=== PATIENT | female | born 1980 | race Asian ===

== ENCOUNTER → 2020-11-14 10:15 | Outpatient (CLI) | payer OTHER, SELFPAY ==
[2020-11-14 11:15] LABS: Specimen Label NATERAKIT
[2020-11-14 14:20] LABS: Urine N gonorrhoeae NOT DETECTED
[2020-11-14 14:44] LABS: Urine Chlamydia NOT DETECTED
== END ==
PROVIDERS: Referring Provider Obstetrics & Gynecology; Visit Provider Obstetrics & Gynecology
DX: Z34.02 Encounter for supervision of normal first pregnancy, second trimester (principal); Z36.0 Encounter for antenatal screening for chromosomal anomalies; Z11.3 Encounter for screening for infections with a predominantly sexual mode of transmission; Z3A.14 14 weeks gestation of pregnancy
CPT/HCPCS: 36415; 87491; 87591

== ENCOUNTER → 2021-02-04 11:47 | Outpatient (CLI) | payer OTHER, SELFPAY ==
[2021-02-04 13:18] LABS: Hematocrit 32.3 % (36-46); Hemoglobin 11.3 g/dL (12.0-16.0)
[2021-02-04 13:32] LABS: GTT (PREG) 1 Hour PP 50gm Dose 127 mg/dL (76-139)
== END ==
PROVIDERS: Referring Provider Obstetrics & Gynecology; Visit Provider Obstetrics & Gynecology
DX: Z34.02 Encounter for supervision of normal first pregnancy, second trimester (principal); Z3A.25 25 weeks gestation of pregnancy
CPT/HCPCS: 36415; 82950; 85014; 85018

== ENCOUNTER → 2021-04-20 14:56 | Outpatient (CLI) | payer OTHER, SELFPAY ==
[2021-04-21 13:34] LABS: Strep Grp B PCR NEG for Grp B Strep
== END ==
PROVIDERS: Visit Provider Obstetrics & Gynecology
DX: Z34.03 Encounter for supervision of normal first pregnancy, third trimester (principal); Z3A.36 36 weeks gestation of pregnancy
CPT/HCPCS: 87653

== ENCOUNTER → 2021-04-27 11:51 | Outpatient (CLI) | payer OTHER, SELFPAY | PROVIDERS: Visit Provider Obstetrics & Gynecology | DX: R31.9 Hematuria, unspecified (principal) | CPT/HCPCS: 87086 ==

== ENCOUNTER → 2021-05-04 09:07 | Outpatient (CLI) | payer OTHER, SELFPAY ==
[2021-05-04 10:04] LABS: COVID19 -Nasal RAPID Negative (Negative)
== END ==
PROVIDERS: Visit Provider Obstetrics & Gynecology
DX: Z34.03 Encounter for supervision of normal first pregnancy, third trimester (principal); Z3A.38 38 weeks gestation of pregnancy
CPT/HCPCS: 87635

== ENCOUNTER 2021-05-07 05:35 | Inpatient (IN) | payer OTHER, SELFPAY ==
[2021-05-07] MEDS: LACTATED RINGERS 1,000 ML 100 ML IV ×5 (06:00→12:26)
[2021-05-07 06:29] LABS: Add Manual Diff / Slide Review NO; Basophils Absolute Auto 100 /uL (0-100); Basophils Percent Auto 0.7 % (0-2); Eosinophils Absolute Auto 200 /uL (0-450); Eosinophils Percent Auto 2.1 % (2-4); Hematocrit 36.3 % (36-46); Hemoglobin 12.6 g/dL (12.0-16.0); Lymphocytes Absolute Auto 1700 /uL (1100-4500); Lymphocytes Percent Auto 22.5 % (25-40); Mean Corpuscular HGB Conc 34.8 % (30-36); Mean Corpuscular Hemoglobin 32.8 PG (26-34); Mean Corpuscular Volume 94.4 fL (80-100); Monocytes Absolute Auto 800 /uL (0-900); Monocytes Percent Auto 9.9 % (3-14); Neutrophils Absolute Auto 5100 /uL (1500-7000); Neutrophils Percent Auto 64.8 % (50-75); Platelet Count 192 X10^3/uL (150-400); Red Blood Cell Count 3.84 X10^6/uL (4.0-5.2); Red Cell Distribution Width 13.8 % (11.6-14.8); White Blood Cell Count 7.8 X10^3/uL (4.5-11.0)
--- NOTE | 2021-05-07 07:25 | SUR.OPER ---
Supine on Padded OR bed, head on pillow, safety belt at thigh, arms secured on padded arm boards at <90 degrees abduction. Bump under right buttock. Legs uncrossed with pillow under knees, gel pad to heels, tape over blanket to lower legs.
[2021-05-07] MEDS: CITRIC ACID/SODIUM CITRATE 15 ML SOLUTION 30 ML PO (07:37)
--- NOTE | 2021-05-07 07:46 | P.HPOB_ITS ---
OB HPI Date/Time Date of admission: 05/07/21 Date Patient Seen: 05/07/21 Time Patient Seen: 07:46 History of Present Condition Chief complaint: INPT COY Calculator Estimated Delivery Date Method Current WG Current Estimate 05/15/21 LMP (Certain) 38w 6d Other Estimates 05/20/21 Ultrasound #1 38w 1d Estimated Gestational Age (weeks): 39 : 1 Para: 0 care: good care, initiated at week # (8), number of visits (11) and pounds weight gain (37) Dating criteria OB: LMP confirmed by 1st trimester US Ultrasounds: normal 1st trimester US and normal mid trimester US Obstetrical complications: none Medical complications OB: none Indications Operative indications ( section): cephalopelvic disproportion (short stature/contracted pelvis) Preadmission Labs Last OB Lab Results: Blood Type AB Positive 05/07/21 06:15 05/07/21 Antibody Screen Negative 05/07/21 06:15 05/07/21 Hematocrit 36.3 % (36-46) 05/07/21 06:15 05/07/21 Hemoglobin 12.6 g/dL (12.0-16.0) 05/07/21 06:15 05/07/21 Glucose 1 Hour 127 mg/dL (76-139) 02/04/21 13:02 02/04/21 Group B Streptococcus (PCR) Neg for grp b strep 04/20/21 14:56 04/20/21 -: Chlamydia screen: negative, Gonorrhea screen: negative and Urine: negative -: PAP smear: Normal Genetic Screens: Cell-free DNA: Normal and Alpha-fetoprotein: Normal External Labs Blood type OB HPI: AB (+) positive -: Antibody screen: negative, HBsAG: negative, HIV: negative, RPR/VDLR: negative, Chlamydia screen: negative, Gonorrhea screen: negative and Urine: negative -: Rubella: immune and Varicella: immune HCAB: negative PAP: Normal Evaluation Evaluation Baseline heart rate: 135 Variability: Moderate (11-25) monitor accelerations: Present Monitor Decelerations: Absent Status: Category l [facility] Medical History (Updated 03/18/21 @ 10:30 by Juany De Jesus MD) Abnormal Pap smear of cervix (~2005) Surgical History (Updated 11/12/20 @ 12:43 by Laina Caputo RN) [place] teeth extracted Family History (Updated 11/12/20 @ 12:50 by Laina Caputo RN) Mother Hypertension Diabetes mellitus Stented coronary artery Hyperlipidemia Father Pancreatic cancer Stroke Hypertension History of open heart surgery Grandmother Alzheimer disease Diabetes mellitus Grandfather Unknown family medical history Grandmother Cancer Hyperlipidemia Grandfather Cancer Social History marital status: number of children: 0 household members: spouse lives independently: Yes caregiver/support person: No housing: house pets and animals: Yes (2 dogs: ) education level: master's degree (Licensed Acupuncturist, 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 ), swimming (1 hour twice a week.) and running frequency: 3-4 times per week duration: 30-45 minutes/day Meds Home Medications and Allergies Home Medications Medication Instructions Recorded Confirmed Type prenat.vits,jocelyne,eus-bzvq-ehkib 1 tab PO DAILY 11/12/20 05/04/21 History pantoprazole 40 mg tablet,delayed 40 mg PO DAILY #30 tab 02/04/21 05/04/21 Rx release (Protonix) meclizine 25 mg tablet 25 mg PO Q6H PRN #20 tab 02/24/21 05/04/21 Rx Allergies Allergy/AdvReac Type Severity Reaction Status Date / Time No Known Drug Allergies Allergy Verified 05/04/21 08:46 OB Exam Narrative Exam Narrative: HEENT: No thyromegaly, no anterior cervical or supraclavicular lymphadenopathy. Lungs:Clear to auscultation bilaterally, no wheezes. Cardiovascular: Regular rate and rhythm, no murmurs, rubs, or gallops. Abdomen: No scars. No hepatosplenomegaly. No masses palpable. Fundal height: 39 cm Estimated weight: 7 lb External genitalia: Normal Vagina: Normal Cervix: Normal Extremities: Tr edema Objective Labs Result Diagrams: 05/07/21 06:15 Labs: Laboratory Results - last 24 hr 05/07/21 05/07/21 06:15 06:15 WBC 7.8 RBC 3.84 L Hgb 12.6 Hct 36.3 MCV 94.4 MCH 32.8 MCHC 34.8 RDW 13.8 Plt Count 192 Neut % (Auto) 64.8 Lymph % (Auto) 22.5 L [place] % (Auto) 9.9 Eos % (Auto) 2.1 Baso % (Auto) 0.7 Neut # (Auto) 5100 Lymph # (Auto) 1700 [place] # (Auto) 800 Eos # (Auto) 200 Baso # (Auto) 100 Blood Type AB Positive Antibody Screen Negative Assessment and Plan Assessment and Plan Assessment and Plan narrative: Assessment: 40-year-old 1 para 0 at an estimated gestational age of 39 weeks Short stature/contracted pelvis Desires primary section Plan: Primary low-transverse section The risks, benefits, and alternatives to the procedure were explained to the patient. The risks including bleeding, infection, injury to the bowel, bladder, or ureters. She understands these risks and agrees to proceed. A full par Q was held and consent form was signed. Time Spent with Patient Total time spent with greater than 50% in coordination of care (as documented) at patient's floor/unit and/or counseling patient:: 15-24 minutes
--- NOTE | 2021-05-07 07:56 | PM.PREOP ---
Pre-operative Note COVID-19 COVID-19 status: Negative Result date/Date tested (Pos, Neg/Pending): 05/04/21 Criteria for continued procedure: Non-surgical alternatives not available or appropriate per current SOC Interval Note History & Physical reviewed/Exam performed by Physician: Yes Changes to H&P: No H&P completed within 30 days and has changed as indicated here:: 05/07/21
[2021-05-07] MEDS: CEFAZOLIN 2 GM/20 ML SYRINGE IV (08:01)
--- NOTE | 2021-05-07 08:32 | SUR.OPER ---
FHT's before prep 145. TOB 0820 live female. Cord blood x 2 and placenta to OB with L&D RN.
[2021-05-07 09:06] VITALS: BP 94/73; PULSE 65; RESP 15; O2SAT 97
[2021-05-07 09:21] VITALS: BP 106/65; PULSE 71; RESP 15; TEMP 35.9; O2SAT 97
--- NOTE | 2021-05-07 09:25 | SUR.PHASEI ---
Report called to Sonali LIMON. Pt returning to room 3 in LD dept. Pt updated on plan of care and is agreeable.
--- NOTE | 2021-05-07 09:26 | P.OP_ITS ---
Operative Date/Time/Diagnoses Date of procedure: 05/07/21 Time of procedure: 09:26 Pre-op diagnosis: Contracted pelvis Short stature Desires primary section Post-op diagnosis: same Procedure & Clinicians Procedure: Primary low-transverse section Same procedure as scheduled: Yes Indications: Short stature Contracted pelvis Patient desires primary section Surgeon: Juany De Jesus Click Yes if Unassisted: No Senior Accountant Analyst: Nimo Colin Reason for Senior Accountant Analyst: Senior Accountant Analyst necessary for retraction and aided in entering the abdomen and uterus. Helped in delivery of the infant. Senior Accountant Analyst necessary for retraction, clipping of suture, and closure of the contralateral fascia. Anesthesia Type: Spinal (With Duramorph) Operative Notes Findings: Live male infant in the CLAY presentation Normal uterus, tubes, and ovaries Closure Type: primary Specimen(s): cord blood and placenta Intraoperative meds administered: Duramorph and Ketorolac Applied: Catheter (To continuous drainage) Estimated Blood Loss (mL): 350 Blood products transfused: none Procedure in detail: The patient was taken to the operating room where she was placed in the seated position. Spinal anesthesia with Duramorph was administered. She was then placed in the dorsal supine position with a leftward tilt. She was prepped and draped in the usual sterile fashion. A timeout was performed. After spinal analgesia was found to be adequate, a Pfannenstiel skin incision was made 2 fingerbreadths above the pubic symphysis and carried through to the underlying layer fascia. The fascia was nicked in the midline, and the incision extended bilaterally with the Jauregui scissors. The superior aspect of the fascial incision was grasped with a Julius clamps, elevated, and the underlying rectus muscles dissected off sharply and bluntly. Attention was then turned to the inferior aspect of this incision which in a similar fashion was grasped with a [place] clamps, elevated, and the underlying rectus muscles dissected off sharply and bluntly. The rectus muscles were in the midline. The peritoneum was identified, grasped between 2 hemostats, and entered sharply with the Metzenbaum scissors. This incision was extended superiorly and inferiorly with good visualization of the bladder. The bladder blade was inserted. The v esicouterine peritoneum was identified, grasped with the pickup, and entered sharply with the Metzenbaum scissors. This incision was extended bilaterally, and the bladder flap was created digitally. The bladder blade was reinserted. The lower uterine segment was incised in a transverse fashion with the scalpel. Upon entering the amniotic sac there was a small amount of clear amniotic fluid. The infant's head was delivered without difficulty. The nose and mouth were suctioned with bulb suction. The remainder of the body delivered without difficulty. The cord was double clamped and cut after one minute. The infant was handed off to waiting RN and RT. The placenta was delivered manually. The uterus was cleared of all clots and debris. The uterine incision was repaired with #1 chromic in a running interlocking fashion, and a second layer the same suture was used for an imbricating layer. Hemostasis was achieved. The tubes and ovaries were examined and were found to be normal. The gutters were cleared of all clots and debris. The bladder flap was reapproximated using 2-0 Vicryl in a running fashion. The parietal peritoneum was closed using 2-0 Vicryl in a running fashion. The fascia was reapproximated using 0 Vicryl in a running fashion. The subcutaneous layer was copiously irrigated with warm normal saline. 6 simple interrupted sutures of 3-0 Vicryl were placed to reapproximate the subcutaneous layer. The skin was closed with 4-0 Monocryl in a subcuticular fashion. Steri-Strips were placed. An Aquacel dressing was placed. The uterus was expressed of a small amount of old blood. Sponge, lap, and instrument counts were correct ?-2. The patient tolerated the procedure well, and was taken to PACU in stable condition. Complications: none Baby 1: Gender: Female Presentation: vertex Position: Left Occiput Anterior Placental Delivery Description: Expressed Cord Vessel Description: 3 Vessels score (1 min): 9 score (5 min): 9 weight: 6 lb 6.8 oz Post-operative Condition: stable Disposition: PACU Aftercare: routine postop
[2021-05-07 11:52] VITALS: BP 116/78
[2021-05-07 14:17] LABS: Estimated Glomerular Filt Rate > 60.0 mL/min (>60)
[2021-05-07] MEDS: KETOROLAC 30 MG/ML VIAL IV ×2 (15:03→20:56)
[2021-05-07] MEDS: ONDANSETRON 4 MG/2 ML INJ IV (15:07)
[2021-05-07] MEDS: METOCLOPRAMIDE 10 MG/2 ML INJ IV (18:39)
[2021-05-07] MEDS: ePHEDrine 50 MG/ML VIAL 40 MG IM (18:42)
[2021-05-07] MEDS: DEXAMETHASONE 10 MG/ML VIAL IV (18:47)
[2021-05-08] MEDS: KETOROLAC 30 MG/ML VIAL IV (03:04)
[2021-05-08 06:30] LABS: Hematocrit 32.2 % (36-46)
[2021-05-08 09:26] VITALS: TEMP 36.6
[2021-05-08] MEDS: DOCUSATE 100 MG CAPSULE 200 MG PO (09:26)
[2021-05-08] MEDS: ACETAMINOPHEN 325 MG TABLET 650 MG PO ×3 (09:26→21:45)
[2021-05-08 09:28] VITALS: TEMP 36.6
[2021-05-08] MEDS: IBUPROFEN 600 MG TABLET PO ×3 (09:28→21:44)
--- NOTE | 2021-05-08 10:53 | PM.OBPN.1 ---
Subjective - OB Subjective Patient comments: no complaints, pain well controlled and tolerating diet baby status: doing well and nursing well feeding status: exclusively breast feeding Date Patient Seen: 05/08/21 Time Patient Seen: 10:20 Interval history: Patient is a 40-year-old 1 para 1 postop day # 1 status post primary section due to short stature and contracted pelvis. She is doing well. She has voided without the catheter. She is tolerating a diet after much nausea last night. She is ambulating. is going well. Her bleeding is tapering. Exam Vital Signs (past 8 hours): - 05/08/21 09:26 05/08/21 09:28 Temperature 97.8 F 97.8 F Oxygen Delivery Method Room Air Narrative Exam Narrative: Generally: Patient is sitting up in bed, nursing , no acute distress Lungs: Clear to auscultation bilaterally Cardiovascular: Regular rate and rhythm Fundus: Firm at U -1 Incision: Clean dry and intact with Aquacel dressing Extremities: No edema, negative Homans Objective Labs Result Diagrams: 05/08/21 06:02 05/07/21 11:48 Labs: Laboratory Results - last 24 hr 05/07/21 05/08/21 11:48 06:02 Hgb 11.0 L Hct 32.2 L Creatinine 0.52 Estimated GFR > 60.0 Assessment & Plan Plan day: 1 plan OB: routine postop care Comments: Discharge teaching done Anticipate discharge May 09, 2021 Time Spent With Patient Time: Total time spent is greater than 50% in coordination of care (as documented) at patient's floor/unit and/or counseling patient: Time with patient: 15-24 minutes
[2021-05-08 15:37] VITALS: TEMP 37
[2021-05-08 15:38] VITALS: TEMP 37
[2021-05-08 16:00] VITALS: TEMP 37
[2021-05-09] MEDS: IBUPROFEN 600 MG TABLET PO ×2 (03:26→09:16)
[2021-05-09] MEDS: ACETAMINOPHEN 325 MG TABLET 650 MG PO ×2 (03:26→09:15)
[2021-05-09] MEDS: LANOLIN OINT 7 GM 1 APPLIC TOP (03:37)
--- NOTE | 2021-05-09 06:22 | PM.OBDS.1 ---
Discharge Providers Provider Date of admission: 05/07/21 05:35 Discharge Date: 05/09/21 Primary care physician: Doctor Moise MD Consults: 05/07/21 10:29 Consult to Mixing Machine Tender Cork Gasket Routine Comment: Discharge provider: Aster Krishna MD Summary Hospital Course Date Patient Seen: 05/09/21 Time Patient Seen: 06:22 Diagnoses: Primary low-transverse section for contracted pelvis at 39 weeks Hospital Course: Patient underwent a primary low-transverse section on 05/07/2021. She is urinating and ambulating well. She is passing gas. Her pain is under control. Peripartum Data Delivery Method: Section (Primary low-transverse) Procedures: Primary low-transverse section complications: none 1: Gender: Female Disposition of : home Discharge Diagnosis (1) Status post primary low transverse section: Status: Acute (2) Contracted pelvis: Status: Acute Status at Discharge Cognitive/behavioral status at discharge: oriented Functional status at discharge: independent ambulation Overall status at discharge: patient is progressing back to baseline Time Spent with Patient Time attestation: Total time spent providing and/or coordinating discharge services: Time spent: Less than 30 minutes Objective Labs Result Diagrams: 05/08/21 06:02 05/07/21 11:48 Labs: Laboratory Results - last 24 hr 05/08/21 06:02 Hgb 11.0 L Hct 32.2 L Exam Vital Signs (past 8 hours): Blood pressure 115/71, pulse 66, temperature 97.7? Oxygen Delivery Method Room Air Narrative Exam Narrative: Abdomen is soft, nontender. Uterus is firm, at U, nontender. Dressing is clean, dry, intact. Mild lochia. Extremities with trace edema and nontender. Patient's blood type is AB-positive, she is rubella immune, received Tdap in the 3rd trimester. Discharge Plan Discharge Plan Patient Disposition: Home Provider Discharge Comment: Call with fever, chills, bleeding vaginally more than a pad in an hour, or redness or drainage around the incision Ibuprofen 600 mg every 6 hours Tylenol 650 mg every 6 hours Stool softener as needed Oxycodone as needed Discharge orders & Medications Prescriptions: New oxycodone 5 mg tablet 5 mg PO Q4H PRN (Reason: pain) Qty: 20 0RF Continued prenat.vits,jocelyne,frm-lusm-zlyad Tablet 1 tab PO DAILY 0RF Discontinued pantoprazole [Protonix] 40 mg tablet,delayed release (DR/EC) 40 mg PO DAILY Qty: 30 11RF Follow up/Referrals: Juany De Jesus MD [Physician] - 05/14/21 1:00 pm (TH on 05/14/21 6 wk PP visit 06/23/21 at 1:30 pm. ) Diet/Activity/Treatments Diet: Regular Activity: No heavy lifting, nothing more than the baby Nothing in the vagina Skin/Wound/Dressing Care Report to your healthcare provider any signs of infection, such as:: chills, fever, increased pain, unusual drainage and unusual redness Dressing: Will discuss removal of Aquacel dressing at TH visit next Visit Report/Discharge Packet Instructions: DI for , DI for Prescription Opioid Use Discharge Data Primary Care Provider: Miscellaneous,Doctor
[2021-05-09] MEDS: DOCUSATE 100 MG CAPSULE 200 MG PO (09:17)
[2021-05-09] MEDS: PRENATAL VIT,CALC/IRON/FOLIC 1 TABLET 1 TAB PO (09:17)
== END 2021-05-09 12:45 | disposition home or self-care (01) | DRG 788 ==
PROVIDERS: Admitting Provider Obstetrics & Gynecology; Referring Provider Obstetrics & Gynecology; Visit Provider Obstetrics & Gynecology
PROC: 10D00Z1 Extraction of Products of Conception, Low, Open Approach (ICD-10-PCS; CPT 59514; principal; 2021-05-07 07:45)
DX: O33.1 Maternal care for disproportion due to generally contracted pelvis (principal); Z3A.38 38 weeks gestation of pregnancy; Z37.0 Single live birth; O99.891 Other specified diseases and conditions complicating pregnancy; K21.9 Gastro-esophageal reflux disease without esophagitis
CPT/HCPCS: 36415; 59050; 59510; 59514; 82565; 85014; 85018; 85025; 86850; 86900; 86901; J0690; J1100; J1885; J2274; J2405; J2590; J2765